=== PATIENT | male | born 1995 | race Hispanic/Latino ===

== ENCOUNTER 2019-01-31 16:02 | Emergency (ER) | payer SELFPAY ==
[~2019-01-31] VITALS: Ht 175.3 cm; Wt 110.0 kg
[2019-01-31 16:45] LABS: HEMATOCRIT 43.3 % (39.0-50.0); HEMOGLOBIN 14.8 g/dl (14.0-18.0); IMMATURE GRANULOCYTES 0.6 % (0.0-5.0); MEAN CELL VOLUME 78.6 fL CALC (80.0-100.0); MEAN CORPUSCULAR HGB 26.9 pG CALC (26.0-32.0); MEAN CORPUSCULAR HGB CONC 34.2 g/L CALC (32.0-36.0); NEUT# 7.27 thou/uL (1.82-7.42); RED BLOOD COUNT 5.51 mill/uL (4.70-6.10)
[2019-01-31 16:57] LABS: ANION GAP 17 (6-22 (CALC)); BUN 10 mg/dL (9-20); BUN/CREATININE RATIO 12 (12-20 (CALC)); CARBON DIOXIDE 25 mmol/l (22-30); CHLORIDE 106 mmol/l (95-108); CREATININE 0.9 mg/dL (0.7-1.3); GFR > 60 ML/MIN (>=60 (CALC)); GFR FOR AFR.AMER. > 60 ML/MIN (>=60 (CALC)); SODIUM 143 mmol/l (137-146)
[2019-01-31 17:57] VITALS: BP 153/88
== END 2019-01-31 17:57 | disposition home or self-care (01) | DRG 103 ==
LOC: ED 16:02
PROVIDERS: Family Medicine
DX: R51 Headache (principal)